=== PATIENT | female | born 1945 | race Caucasian/White ===

== ENCOUNTER 2022-12-16 11:58 | Outpatient (REF) | payer MEDICARE, SELFPAY ==
[2022-12-16 13:41] LABS: Anion Gap 9.4 mmol/L (3-11); BUN 13 mg/dL (7-18); CO2 28.6 mmol/L (21.0-32.0); CREATININE 0.8 mg/dL (0.55-1.02); Calcium 9.1 mg/dL (8.5-10.1); Chloride 102 mmol/L (98-107); Estimated GFR 76.31 (mL/min/1.73m2); Glucose 128 mg/dL (74-106); Potassium 3.7 mmol/L (3.5-5.1); Sodium 140 mmol/L (136-145)
== END 2022-12-16 11:59 | disposition home or self-care (01) ==
LOC: LBN 11:58
PROVIDERS: Visit Provider Family Medicine
DX: E43 Unspecified severe protein-calorie malnutrition (principal); E88.81 Metabolic syndrome and other insulin resistance; R62.7 Adult failure to thrive
CPT/HCPCS: 80048

== ENCOUNTER 2023-01-17 15:25 | Outpatient (REF) | payer MEDICARE, SELFPAY ==
[2023-01-17 15:00] LABS: ALT 28 U/L (14-59); AST 21 U/L (15-37); Alkaline Phosphatase 78 U/L (46-116); Anion Gap 8.9 mmol/L (3-11); BUN 15 mg/dL (7-18); Bilirubin, Total 0.4 mg/dL (0.2-1.0); CO2 28.1 mmol/L (21.0-32.0); CREATININE 0.8 mg/dL (0.55-1.02); Calcium 9.4 mg/dL (8.5-10.1); Chloride 102 mmol/L (98-107); Estimated GFR 75.84 (mL/min/1.73m2); Glucose 99 mg/dL (74-106); Potassium 3.6 mmol/L (3.5-5.1); Sodium 139 mmol/L (136-145); Total Protein 6.8 g/dL (6.4-8.2); Vitamin B12 1131 pg/mL (193-986)
[2023-01-18 09:40] LABS: Prealbumin 14 mg/dL (20-40)
== END 2023-01-17 15:26 | disposition home or self-care (01) ==
LOC: LBN 15:25
PROVIDERS: Visit Provider Family Medicine
DX: M62.81 Muscle weakness (generalized) (principal)
CPT/HCPCS: 80053; 82607; 84134

== ENCOUNTER 2023-01-17 18:15 | Emergency (ER) | payer MEDICARE, SELFPAY ==
[2023-01-17] VITALS (14 sets, daily range): BP systolic 128–155; BP diastolic 57–83; PULSE 69–74; RESP 18; TEMP 36.8; O2SAT 97–100
--- NOTE | 2023-01-17 18:15 | RT.EKG_ITS ---
APPROVED REPORT Exam: Resting ECG Reason for Exam: fall Patient Location: E HR:72 bpm ECG Measurements Heart Rate 72 AXIS SC 136 P 61 QRSd 98 QRS 59 QT 434 T 68 QTc 476 Conclusion normal Sinus rhythm... Ventricular premature complex. Appropriate intervals. No ST segment or T wave abnormalities to suggest occlusive [place]
--- NOTE | 2023-01-17 18:15 | DI.CT_ITS ---
Exam(s) CT HEAD CERVICAL SPINE WO EXAM: CT HEAD CERVICAL SPINE WO CLINICAL HISTORY: fall, head lac, unknown LOC. TECHNIQUE: Imaging Protocol: Axial computed tomography images with coronal and sagittal reformatted images were created and reviewed COMPARISON: No exams were available for comparison FINDINGS: BRAIN: There are no skull fractures nor fluid in the visualized paranasal sinuses. There is no evidence of intracranial hemorrhage, mass effect, or shift of midline structures. There are no extra-axial fluid collections. The ventricles are not enlarged or shifted and there is no blo od within the ventricular system nor within the basal cisterns. Moderate amount of periventricular hypodensity consistent with chronic small vessel disease. No obvi ous acute infarct. CERVICAL SPINE: There is no evidence of fracture nor listhesis. No significant prevertebral soft tissue swelling. Multilevel degenerative disc disease. Also facet arthropathy but without facet malalignment. There is no significant facet joint malalignment. No significant osseous lesions evident. IMPRESSION: No acute intracranial findings on this noninfused CT scan of the brain.Chronic small-vessel white mat ter ischemic changes. No evidence of acute cervical spine fracture, malalignment, nor acute compromise of the cervical spin al canal. RADIATION DOSE DELIVERED: Total DLP DATA REPOSITORY: All CT scans at this facility are submitted to the National Radiology Data Registry (NRDR) Dose Index Registry (DIR) with the [employer] ([employer]). RADIATION OPTIMIZATION: All CT scans at this facility use at least one of these dose optimization te chniques: automated exposure control; mA and/or kV adjustment per patient size (includes targeted exa ms where dose is matched to clinical indication); or iterative reconstruction.
[2023-01-17 18:50] LABS: Abs Immature Grans 0.03 10^3/uL (0.0-0.06); Absolute Basophil Count 0.05 10^3/uL (0.0-0.2); Absolute Eosinophil Count 0.15 10^3/uL (0.0-0.7); Absolute Monocyte Count 1.16 10^3/uL (0.1-0.8); Absolute Neutrophil Count 8.19 10^3/uL (1.2-6.7); Basophils % 0.4; Eosinophils % 1.3; HCT 39.4 % (36.0-46.0); HGB 13.3 g/dL (11.2-15.7); Immature Grans % 0.3; Lymphocytes % 15.1; MCH 31.2 pg (27.0-33.0); MCHC 33.8 % (32.0-36.0); MCV 93 fL (80-95); MPV 9.1 fL (8.0-11.0); Monocytes % 10.3; Neutrophils % 72.6; Platelet Count 363 10^3/uL (130-400); RBC 4.26 10^6/uL (3.93-5.22); RDW 11.9 % (11.7-14.6); RDW-SD 40.7 fL; WBC 11.28 10^3/uL (4.4-10.8)
[2023-01-17 19:07] LABS: ALT 19 U/L (14-59); AST 18 U/L (15-37); Albumin 2.7 g/dL (3.4-5.0); Alkaline Phosphatase 73 U/L (46-116); Anion Gap 7.6 mmol/L (3-11); BUN 21 mg/dL (7-18); Bilirubin, Total 0.3 mg/dL (0.2-1.0); CO2 27.4 mmol/L (21.0-32.0); CREATININE 0.9 mg/dL (0.55-1.02); Calcium 9.2 mg/dL (8.5-10.1); Chloride 102 mmol/L (98-107); Estimated GFR 65.84 (mL/min/1.73m2); Glucose 134 mg/dL (74-106); Potassium 3.9 mmol/L (3.5-5.1); Sodium 137 mmol/L (136-145); Total Protein 6.6 g/dL (6.4-8.2)
[2023-01-17 19:13] LABS: INR 1.1 (0.9-1.1); Prothrombin Time 10.8 sec (9.1-11.1)
[2023-01-17 19:17] LABS: PTT Activated 24.5 sec (23.6-32.8)
--- NOTE | 2023-01-17 19:26 | DI.VRAD_ITS ---
PROCEDURE INFORMATION: Exam: CT Head Without Contrast Exam date and time: 01/17/2023 7:06 PM Age: 78 years old Clinical indication: Injury or trauma; Fall; Blunt trauma (contusions or hematomas); Additional info: Fall, head lac, unknown loc TECHNIQUE: Imaging protocol: Computed tomography of the head without contrast. COMPARISON: No relevant prior studies available. FINDINGS: Brain: Mild volume loss No hemorrhage.Moderate white matter disease No mass effect. Cerebral ventricles: No ventriculomegaly. Paranasal sinuses: Visualized sinuses are unremarkable. No fluid levels. Mastoid air cells: Visualized mastoid air cells are well aerated. Bones/joints: Unremarkable. No acute fracture. Soft tissues: Left occipital scalp laceration IMPRESSION: No acute intracranial hemorrhage noted PROCEDURE INFORMATION: Exam: CT Cervical Spine Without Contrast Exam date and time: 01/17/2023 7:06 PM Age: 78 years old Clinical indication: Injury or trauma; Fall; Blunt trauma (contusions or hematomas); Additional info: Fall, head lac, unknown loc TECHNIQUE: Imaging protocol: Computed tomography of the cervical spine without contrast. COMPARISON: No relevant prior studies available. FINDINGS: Bones/joints: No acute fracture. Loss of cervical lordosis is presumably on a degenerative basis. 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 Multilevel foraminal stenosis Lungs: Lung apices are grossly clear Soft tissues: Unremarkable. IMPRESSION: No acute findings. Dictated and Authenticated by: Bartolo Shah MD. Ordering:SRAVAN Cameron MD
--- NOTE | 2023-01-17 19:44 | ED.GENADUL_ITS ---
Discharge Plan Disposition Patient Disposition: Intermediate Facility(SNF) Condition: Good Discharge Details Clinical Impression: Head injury, Fall, Laceration of scalp ED Provider: Nisha Salamanca Home Meds and New Rx's Prescriptions: No Action acetaminophen 325 mg capsule 325 mg PO Q6H PRN aripiprazole 2 mg tablet 2.5 mg PO DAILY citalopram 40 mg tablet 40 mg PO DAILY docusate sodium [Colace] 100 mg capsule 100 mg PO BID cranberry 500 mg capsule 500 mg PO DAILY Rx Instructions: administer with a meal lorazepam 0.5 mg tablet 0.5 mg PO TID metoprolol succinate 50 mg tablet extended release 24 hr 50 mg PO DAILY polyethylene glycol 3350 [Miralax] 17 gram/dose powder 17 g PO DAILY PRN pantoprazole [Protonix] [address] for susp in packet 40 mg PO DAILY rosuvastatin 10 mg tablet 10 mg PO DAILY vitamin B complex [B Complex-Vitamin B12] Tablet 1 tab PO DAILY cholecalciferol (vitamin D3) [Vitamin D3] 25 mcg (1,000 unit) tablet 1,000 unit PO DAILY Discharge Instructions Instructions: Head Injury (ED), Pressure Injury (ED), Staple Care (ED) Additional Instructions: [facility] out in 7-10 days. Followup with PCP this week; call tomorrow to schedule an appointment. IT IS VERY IMPORTANT THAT SHE HAVE HER HANDS CLEANED WELL TO PREVENT GETTING A SKIN INFECTION SHOULD SHE TOUCH HER WOUND. IT IS VERY IMPORTANT FOR HER TO MOVE OR BE TURNED EVERY 2 HOURS TO PREVENT WORSENING OF HER PRESSURE ULCER Return to the emergency department for new or worsening symptoms including nausea, vomiting, severe headache, numbness, weakness, or other concerns. Medical Decision Making 78yo F with FTT presenting from nursing facility after mechanical fall from standing. History from patient and EMS and medical history from nursing facility records. No anticoagulation, unknown loss of consciousness. Nothing history to suggest syncope or acute medical etiology of fall. Vital signs reassuring, on exam she has a small hemostatic left occipital laceration, no other significant traumatic findings. Normal neuro exam. Will get head and c- spine CT, no indication for other imaging on my exam. EKG NSR, appropriate intervals, no ST segment or T wave abnormalities to suggest occlusive [place]. Labs reviewed as below, CBC & CMP reassuring with no significant abnormalities, no anemia, no electrolyte abnormalities. Normal coags. CT head and Cspine as below, no cervical fracture or dislocation, no intracranial hemoraghe. Laceration repaired. Tetanus booster given. On reassessment she remains well appearing with reassuring vital signs and a normal neurologic exam. Discussed extensively with daughter at bedside. Discharged back to nursing facility; discharge instructions including return precautions were reviewed with patient and family who verbalized understanding. All questions were answered. Medical Records Medical records reviewed: Yes I reviewed the patient's medical records. Medical records narrative: Reviewed medical records from nursing facility including medical history and orders Imaging Data Radiologic Study: Imaging: CT Scan Radiologist's impression: IMPRESSION: No acute intracranial hemorrhage noted Radiologic Study #2: Imaging: CT Scan Radiologist's impression: IMPRESSION: No acute finding Lab Data Lab results reviewed: Yes I reviewed the patient's lab results. Labs: Laboratory Tests Range/Units 01/17/23 01/17/23 18:41 18:54 WBC (4.4-10.8) 10^3/uL 11.28 H RBC (3.93-5.22) 10^6/uL 4.26 Hgb (11.2-15.7) g/dL 13.3 Hct (36.0-46.0) % 39.4 MCV (80-95) fL 93 MCH (27.0-33.0) pg 31.2 MCHC (32.0-36.0) % 33.8 RDW (11.7-14.6) % 11.9 Plt Count (130-400) 10^3/uL 363 MPV (8.0-11.0) fL 9.1 Immature Gran % 0.3 Neutrophils % 72.6 Lymphocytes % 15.1 Monocytes % 10.3 Eosinophils % 1.3 Basophils % 0.4 Nucleated RBC % (0.0-0.3) % 0.0 Absolute Neutrophils (1.2-6.7) 10^3/uL 8.19 H Absolute Lymphocytes (1.2-3.4) 10^3/uL 1.70 Absolute Monocytes (0.1-0.8) 10^3/uL 1.16 H Absolute Eosinophils (0.0-0.7) 10^3/uL 0.15 Absolute Basophils (0.0-0.2) 10^3/uL 0.05 PT (9.1-11.1) sec 10.8 INR (0.9-1.1) 1.1 APTT (23.6-32.8) sec 24.5 Sodium (136-145) mmol/L 137 Potassium (3.5-5.1) mmol/L 3.9 Chloride (98-107) mmol/L 102 Carbon Dioxide (21.0-32.0) mmol/L 27.4 Anion Gap (3-11) mmol/L 7.6 BUN (7-18) mg/dL 21 H Creatinine (0.55-1.02) mg/dL 0.9 Est GFR (CKD-EPI 2020) (mL/min/1.73m2) 65.84 Glucose (74-106) mg/dL 134 H Calcium (8.5-10.1) mg/dL 9.2 Total Bilirubin (0.2-1.0) mg/dL 0.3 AST (15-37) U/L 18 ALT (14-59) U/L 19 Alkaline Phosphatase (46-116) U/L 73 Total Protein (6.4-8.2) g/dL 6.6 Albumin (3.4-5.0) g/dL 2.7 L HPI General Mode of arrival: EMS . Date/Time Provider Initiated Documentation: 01/17/23 18:20 . Limitations to Documentation: no limitations . Information obtained by: patient, EMS and old records reviewed . HPI Narrative: 78yo F with FTT presenting from nursing facility after a fall. History from patient and EMS. Per EMS, head laceration with significant amount of bleeding, vital signs stable during transport. Patient reports reaching down to put on her slippers and losing her balance, falling on to her left side and striking the back of her head. Not sure if she lost consciousness. No presyncopal sensations prior to the fall. No chest pain or shortness of breath at any point. She is otherwise in her usual state of health with no fevers, chills, rash, nausea, vomiting, abdominal pain, numbness, tingling, weakness, headache, vision changes, or other concerns. Related Data Home Medications Medication Instructions Recorded Confirmed acetaminophen 325 mg capsule 325 mg PO Q6H PRN 01/17/23 01/17/23 aripiprazole 2 mg tablet 2.5 mg PO DAILY 01/17/23 01/17/23 cholecalciferol (vitamin D3) 25 1,000 unit PO DAILY 01/17/23 01/17/23 mcg (1,000 unit) tablet (Vitamin D3) citalopram 40 mg tablet 40 mg PO DAILY 01/17/23 01/17/23 cranberry 500 mg capsule 500 mg PO DAILY 01/17/23 01/17/23 docusate sodium 100 mg capsule 100 mg PO BID 01/17/23 01/17/23 (Colace) lorazepam 0.5 mg tablet 0.5 mg PO TID 01/17/23 01/17/23 metoprolol succinate 50 mg 50 mg PO DAILY 01/17/23 01/17/23 tablet,extended release 24 hr pantoprazole 40 mg granules 40 mg PO DAILY 01/17/23 01/17/23 delayed-release for susp in packet (Protonix) polyethylene glycol 3350 17 17 g PO DAILY PRN 01/17/23 01/17/23 gram/dose oral powder (Miralax) rosuvastatin 10 mg tablet 10 mg PO DAILY 01/17/23 01/17/23 vitamin B complex (B 1 tab PO DAILY 01/17/23 01/17/23 Complex-Vitamin B12 tablet) Allergies Allergy/AdvReac Type Severity Reaction Status Date / Time amoxicillin Allergy Unverified 01/17/23 18:13 fish derived Allergy Unverified 01/17/23 18:13 Penicillins Allergy Unverified 01/17/23 18:13 shellfish derived Allergy Unverified 01/17/23 18:13 Sulfa (Sulfonamide Allergy Unverified 01/17/23 18:13 Antibiotics) sulfur dioxide Allergy Unverified 01/17/23 18:13 General Stated Complaint: HeadInjury LOWELL: 3 Review of Systems Narrative: see [facility] All Active Problems (Updated 01/17/23 @ 20:00 by Nisha Salamanca MD) Laceration of scalp (Acute) Fall (Acute) Head injury (Acute) Social History Smoking risk assessment performed?: No Exam Narrative Exam Narrative: GENERAL: Alert, in no acute distress. SKIN: Warm and well perfused. HEAD: 1.25cm laceration to left occiput, hemostatic. Otherwise atraumatic, normocephalic without edema or discoloration. EYES: PERRL. No scleral icterus or conjunctival injection. Extraocular muscles intact without nystagmus or diplopia. No proptosis or enophthalmos. NOSE: No discharge, tenderness, laxity. No nasal septal hematoma. MOUTH: No malocclusion or trismus. Moist mucus membranes without blood. NECK: Trachea midline. No discolorations or edema. CV: Regular rate and rhythm, Normal s1 and s2. No murmurs, rubs, or gallops. PV: Radial pulses 2+ bilaterally and symmetric. Dorsalis pedis pulses 1+ bilaterally and symmetric. 2+ capillary refill. No extremity edema. CHEST: No abrasions or ecchymosis. Chest symmetric with respirations. No chest wall tenderness. No crepitus. Lungs are clear to auscultation bilaterally. ABDOMEN: No ecchymosis or abrasions. Soft, nondistended, nontender. BACK: No abrasions, skin openings, or ecchymosis. Spine without bony tenderness, no step offs. Sacral decubitus ulcer. PELVIC: Pelvis stable, nontender to lateral compression : Normal external genitalia. No ecchymosis or edema. MSK: No gross deformities or discolorations or lesions. Tolerates full range of motion of extremities without tenderness. Abrasion left knee. Brown discoloration to right hand on thumb and under fingernails consistent with feces GCS 15. PERRL. EOMI. Fluent speech, no dysarthria. Normal sensation V1, V2, V3 segments bilaterally. No asymmetry. Midline tongue protrusion. Motor- 4+/5 strength symmetric bilateral upper and lower extremities Sensation- Intact to light touch and symmetric multiple dermatomes including upper and lower extremities Coordination- No dysmetria on finger to nose Course Vital Signs Vital signs: Vital Signs Temperature 36.8 C 01/17/23 18:08 Pulse 74 01/17/23 18:08 Respiratory Rate 18 01/17/23 18:08 Blood Pressure 146/66 H 01/17/23 18:08 Pulse Oximetry 97 01/17/23 18:08 Temperature 36.8 C 01/17/23 18:08 Temperature Source Oral 01/17/23 18:08 Pulse 74 01/17/23 18:08 Respiratory Rate 18 01/17/23 18:08 Respiratory Effort Normal 01/17/23 19:06 Blood Pressure 146/66 H 01/17/23 18:08 Blood Pressure Position Sitting 01/17/23 18:08 Pulse Oximetry 97 01/17/23 18:08 Oxygen Delivery Method Room Air 01/17/23 18:08 Oxygen Flow Rate 0 01/17/23 18:08 Pain Level 8 01/17/23 18:08 Lab/Test Results Lab/Test Results: Laboratory Tests Range/Units 01/17/23 01/17/23 18:41 18:54 WBC (4.4-10.8) 10^3/uL 11.28 H RBC (3.93-5.22) 10^6/uL 4.26 Hgb (11.2-15.7) g/dL 13.3 Hct (36.0-46.0) % 39.4 MCV (80-95) fL 93 MCH (27.0-33.0) pg 31.2 MCHC (32.0-36.0) % 33.8 RDW (11.7-14.6) % 11.9 Plt Count (130-400) 10^3/uL 363 MPV (8.0-11.0) fL 9.1 Immature Gran % 0.3 Neutrophils % 72.6 Lymphocytes % 15.1 Monocytes % 10.3 Eosinophils % 1.3 Basophils % 0.4 Nucleated RBC % (0.0-0.3) % 0.0 Absolute Neutrophils (1.2-6.7) 10^3/uL 8.19 H Absolute Lymphocytes (1.2-3.4) 10^3/uL 1.70 Absolute Monocytes (0.1-0.8) 10^3/uL 1.16 H Absolute Eosinophils (0.0-0.7) 10^3/uL 0.15 Absolute Basophils (0.0-0.2) 10^3/uL 0.05 PT (9.1-11.1) sec 10.8 INR (0.9-1.1) 1.1 APTT (23.6-32.8) sec 24.5 Sodium (136-145) mmol/L 137 Potassium (3.5-5.1) mmol/L 3.9 Chloride (98-107) mmol/L 102 Carbon Dioxide (21.0-32.0) mmol/L 27.4 Anion Gap (3-11) mmol/L 7.6 BUN (7-18) mg/dL 21 H Creatinine (0.55-1.02) mg/dL 0.9 Est GFR (CKD-EPI 2021) (mL/min/1.73m2) 65.84 Glucose (74-106) mg/dL 134 H Calcium (8.5-10.1) mg/dL 9.2 Total Bilirubin (0.2-1.0) mg/dL 0.3 AST (15-37) U/L 18 ALT (14-59) U/L 19 Alkaline Phosphatase (46-116) U/L 73 Total Protein (6.4-8.2) g/dL 6.6 Albumin (3.4-5.0) g/dL 2.7 L Procedures Laceration Laceration 1: Site: scalp Side (If applicable): left Size (cm): 1.25 Description: linear Depth: involves muscle layer Local Anesthetic: Lidocaine 1% Amount of anesthesia used (mL): 1 Pre-repair: wound explored, irrigated extensively and deep structures intact Skin layer closed with: other (cameron) Number of sutures: 4
== END 2023-01-17 20:58 | disposition skilled nursing facility (03) ==
LOC: ER 21:05
PROVIDERS: Emergency Provider Student in an Organized Health Care Education/Training Program
DX: S09.90XA Unspecified injury of head, initial encounter (principal); S01.01XA Laceration without foreign body of scalp, initial encounter; S80.212A Abrasion, left knee, initial encounter; I49.3 Ventricular premature depolarization; Z23 Encounter for immunization; W18.39XA Other fall on same level, initial encounter; Y93.89 Activity, other specified; Y92.098 Other place in other non-institutional residence as the place of occurrence of the external cause; Y99.9 Unspecified external cause status
CPT/HCPCS: 36415; 80053; 93005; 99284; 70450; 72125; 85025; 85610; 85730; 93010

== ENCOUNTER 2023-01-29 13:08 | Outpatient (REF) | payer MEDICARE, SELFPAY ==
[2023-01-29 13:27] LABS: HCT 39.4 % (36.0-46.0); HGB 13.2 g/dL (11.2-15.7); MCH 31.3 pg (27.0-33.0); MCHC 33.5 % (32.0-36.0); MCV 93 fL (80-95); MPV 9.7 fL (8.0-11.0); Platelet Count 318 10^3/uL (130-400); RBC 4.22 10^6/uL (3.93-5.22); RDW 12.1 % (11.7-14.6); RDW-SD 42.1 fL; WBC 9.34 10^3/uL (4.4-10.8)
[2023-01-29 13:37] LABS: ALT 22 U/L (14-59); AST 16 U/L (15-37); Albumin 2.8 g/dL (3.4-5.0); Alkaline Phosphatase 82 U/L (46-116); Anion Gap 8.6 mmol/L (3-11); BUN 18 mg/dL (7-18); Bilirubin, Total 0.5 mg/dL (0.2-1.0); CO2 27.4 mmol/L (21.0-32.0); CREATININE 0.6 mg/dL (0.55-1.02); Calcium 8.9 mg/dL (8.5-10.1); Chloride 103 mmol/L (98-107); Estimated GFR 92.39 (mL/min/1.73m2); Glucose 110 mg/dL (74-106); PHOSPHORUS 3.3 mg/dL (2.6-4.7); Sodium 139 mmol/L (136-145)
== END 2023-01-29 13:09 | disposition home or self-care (01) ==
LOC: LBN 13:08
PROVIDERS: Visit Provider Family Medicine
DX: E43 Unspecified severe protein-calorie malnutrition (principal); R62.7 Adult failure to thrive
CPT/HCPCS: 80053; 85027; 83735; 84100